=== PATIENT | female | born 1945 | race Caucasian/White ===

== ENCOUNTER 2023-09-13 15:01 | Inpatient (IN) ==
[2023-09-13 19:22] LABS: Mean Corpuscular Hemoglobin 30.6 pg (27-33); Mean Corpuscular Hgb Conc 33.3 g/dL (31-36); Mean Corpuscular Volume 91.7 fL (80-97); Red Cell Distribution Width 15.5 % (12-17)
[2023-09-13 20:16] LABS: C Reactive Protein 26.51 mg/L (<8.01)
[2023-09-13 20:22] LABS: White Blood Count 7.6 10^3/uL (3.8-11.8)
[2023-09-13 20:23] LABS: Hematocrit 37.3 % (35-45); Hemoglobin 12.4 g/dL (11.5-14.3); Red Blood Count 4.07 10^6/uL (3.63-4.92)
[2023-09-13] MEDS: Acetaminophen IV 1 GM/100ML 1,000 MG/100 ML BAG IV ONE (20:41)
[2023-09-13] MEDS: NS 0.9% 1000 ml BAG 1,000 ML IV ONE (20:41)
[2023-09-13 20:43] LABS: Albumin 3.8 g/dL (3.2-5.2); Albumin/Globulin Ratio 1.3 (1-3); Calcium 8.9 mg/dL (8.6-10.3); Creatinine, Serum 0.91 mg/dL (0.51-0.95); Potassium 4.2 mmol/L (3.5-5.0); Total Bilirubin 0.4 mg/dL (0.2-1.0); Total Protein 6.8 g/dL (6.4-8.9)
[2023-09-13 21:18] LABS: ABS Eosinophils 0.1 10^3/uL (0.0-0.5); ABS Lymphocytes 1.3 10^3/uL (1.0-4.8); ABS Monocytes 0.6 10^3/uL (0.0-0.9); ABS Neutrophils 5.6 10^3/uL (1.5-7.6); Lymphocyte % 17.1 %; Mean Platelet Volume 8.2 fL (7.5-11.2); Platelet Count 372 10^3/uL (150-450)
[2023-09-13] MEDS: Cefepime 2 GM in Dextrose 2 GM/50 ML BAG IV ONE (21:22)
[2023-09-13] MEDS: Vancomycin 1,500 MG in NS 0.9% 250 ml 250 ML IVPB ONE (22:07)
[2023-09-13] MEDS ORDERED: Dextrose 50% Syringe 50 ml 25 GM/50 ML SYRINGE IV PUSH PRN (22:46)
[2023-09-13] MEDS ORDERED: Vancomycin per Pharmacy 1 EA NOTE FOLLOW UP SCH (23:00)
[2023-09-14] MEDS: Iodixanol (CONTRAST) 320 MG/ML 100 ML SDV IV SCH (00:46)
[2023-09-14 06:11] LABS: ABS Basophils 0.1 10^3/uL (0.0-0.1); ABS Eosinophils 0.2 10^3/uL (0.0-0.5); ABS Lymphocytes 1.1 10^3/uL (1.0-4.8); ABS Monocytes 0.9 10^3/uL (0.0-0.9); ABS Neutrophils 7.9 10^3/uL (1.5-7.6); ABS Nucleated RBC 0.01 10^3/ul; Eosinophil % 2.1 %; Hematocrit 32.1 % (35-45); Hemoglobin 10.5 g/dL (11.5-14.3); Mean Corpuscular Hemoglobin 30.1 pg (27-33); Mean Corpuscular Hgb Conc 32.5 g/dL (31-36); Mean Corpuscular Volume 92.4 fL (80-97); Mean Platelet Volume 8.1 fL (7.5-11.2); Platelet Count 326 10^3/uL (150-450); Red Blood Count 3.48 10^6/uL (3.63-4.92); Red Cell Distribution Width 15.2 % (12-17); White Blood Count 10.1 10^3/uL (3.8-11.8)
[2023-09-14 06:49] LABS: Calcium 8.1 mg/dL (8.6-10.3); Creatinine, Serum 0.9 mg/dL (0.51-0.95); Potassium 4.3 mmol/L (3.5-5.0); eGFR CKD-EPI 65.8 (>60)
[2023-09-14] MEDS: Potassium Chlor 20 meq TAB.ER PO SCH (09:23)
[2023-09-14] MEDS: Cefepime 2 GM in Dextrose 2 GM/50 ML BAG IV SCH (09:24)
[2023-09-14] MEDS: Tetan/Diph/Pertus SYR(Tdap) 0.5 ML SYR(BOOSTRIX) use SYR contains LATEX IM ONE (17:06)
[2023-09-14] MEDS: Vancomycin 1,500 MG in NS 0.9% 250 ml 250 ML IVPB SCH (22:57)
[2023-09-15 09:58] LABS: ABS Basophils 0.1 10^3/uL (0.0-0.1); ABS Eosinophils 0.2 10^3/uL (0.0-0.5); ABS Lymphocytes 1.4 10^3/uL (1.0-4.8); ABS Monocytes 0.7 10^3/uL (0.0-0.9); Eosinophil % 1.8 %; Hematocrit 33.7 % (35-45); Hemoglobin 11.1 g/dL (11.5-14.3); Lymphocyte % 16.6 %; Mean Corpuscular Hemoglobin 30.4 pg (27-33); Mean Corpuscular Volume 92.1 fL (80-97); Mean Platelet Volume 8.5 fL (7.5-11.2); Platelet Count 307 10^3/uL (150-450); Red Blood Count 3.66 10^6/uL (3.63-4.92); Red Cell Distribution Width 15.8 % (12-17); White Blood Count 8.3 10^3/uL (3.8-11.8)
[2023-09-15 10:28] LABS: Creatinine, Serum 0.94 mg/dL (0.51-0.95); Magnesium 1.9 mg/dL (1.9-2.7); Potassium 4.2 mmol/L (3.5-5.0); eGFR CKD-EPI 62.5 (>60)
[2023-09-16 06:49] LABS: ABS Eosinophils 0.3 10^3/uL (0.0-0.5); ABS Lymphocytes 1.2 10^3/uL (1.0-4.8); ABS Monocytes 0.7 10^3/uL (0.0-0.9); Hemoglobin 10.1 g/dL (11.5-14.3); Lymphocyte % 16.8 %; Mean Corpuscular Hemoglobin 30.5 pg (27-33); Mean Corpuscular Hgb Conc 33.5 g/dL (31-36); Mean Corpuscular Volume 90.9 fL (80-97); Mean Platelet Volume 8.5 fL (7.5-11.2); Platelet Count 265 10^3/uL (150-450); White Blood Count 7.2 10^3/uL (3.8-11.8)
[2023-09-16 07:07] LABS: Creatinine, Serum 0.88 mg/dL (0.51-0.95); Magnesium 1.9 mg/dL (1.9-2.7); Potassium 4.5 mmol/L (3.5-5.0); eGFR CKD-EPI 67.6 (>60)
[2023-09-16 07:23] LABS: TSH Ultra Thyroid Stim Horm 24.23 mcIU/mL (0.34-5.60)
[2023-09-16] MEDS ORDERED: Vancomycin Trough Check NOTE FOLLOW UP ONE (21:30)
[2023-09-19] MEDS ORDERED: Albuterol HFA INHALER 8 gm MDI INH PRN (12:15)
[2023-09-20 09:56] VITALS: BP 140/65
[2023-09-20] MEDS: Potassium Chloride LIQUID 20 MEQ/15 ML LIQUID PO SCH (10:34)
[2023-09-20 11:02] LABS: Rapid COVID-19 Molecular Undetected (Undetected)
== END 2023-09-20 11:58 | DRG 300 ==
LOC: EDHOLD 15:01 → ED 15:01 → MEDTELE 09-14 20:30 → SUATTDRO 09-15 15:53
PROVIDERS: ADMIT Hospitalist; ATTEND Internal Medicine

== ENCOUNTER 2023-12-28 01:55 | Observation (INO) ==
[2023-12-28 03:03] LABS: ABS Basophils 0.1 10^3/uL (0.0-0.1); ABS Eosinophils 0.1 10^3/uL (0.0-0.5); ABS Lymphocytes 0.9 10^3/uL (1.0-4.8); ABS Monocytes 0.6 10^3/uL (0.0-0.9); ABS Neutrophils 8.1 10^3/uL (1.5-7.6); Eosinophil % 0.5 %; Hematocrit 38.5 % (35-45); Hemoglobin 12.7 g/dL (11.5-14.3); Lymphocyte % 9.6 %; Mean Corpuscular Hemoglobin 28.6 pg (27-33); Mean Corpuscular Hgb Conc 33.1 g/dL (31-36); Mean Corpuscular Volume 86.4 fL (80-97); Mean Platelet Volume 8.6 fL (7.5-11.2); Nucleated Red Blood Cells % 0.1 %/100WBC (0.0-0.8); Platelet Count 282 10^3/uL (150-450); Red Blood Count 4.45 10^6/uL (3.63-4.92); Red Cell Distribution Width 16.6 % (12-17); White Blood Count 9.7 10^3/uL (3.8-11.8)
[2023-12-28 03:23] LABS: Albumin 3.6 g/dL (3.2-5.2); Albumin/Globulin Ratio 1.3 (1-3); Calcium 8.7 mg/dL (8.6-10.3); Creatinine, Serum 1.26 mg/dL (0.51-0.95); Globulin 2.8 g/dL (2-4); Potassium 3.6 mmol/L (3.5-5.0); Total Bilirubin 0.8 mg/dL (0.2-1.0); Total Protein 6.4 g/dL (6.4-8.9)
[2023-12-28 04:43] LABS: High Sensitivity Troponin 1 Hr 8 pg/mL (<15)
[2023-12-28] MEDS: Cefepime 1 GM in Dextrose 1 GM/50 ML BAG IV ONE (04:45)
[2023-12-28] MEDS: Acetaminophen IV 1 GM/100ML 1,000 MG/100 ML BAG IV ONE (04:45)
[2023-12-28] MEDS: Furosemide 40 mg/4 ml IV VIAL IV SLOW PU ONE (04:45)
[2023-12-28 04:48] LABS: C Reactive Protein 57.99 mg/L (<8.01)
[2023-12-28] MEDS ORDERED: Sulfur Hexaflouride MICROSPHR 25 MG VIAL IV PRN (12:46)
[2023-12-28] MEDS: Magnesium Sulfate 2 gm BAG 2 GM/50 ML BAG IVPB ONE (13:05)
[2023-12-28 14:01] LABS: Magnesium 1.8 mg/dL (1.9-2.7)
[2023-12-28 14:08] LABS: Magnesium 1.7 mg/dL (1.9-2.7)
[2023-12-28] MEDS: Potassium Chloride LIQUID 20 MEQ/15 ML LIQUID PO ONE (14:27)
[2023-12-28] MEDS: Iodixanol 320 (CONTRAST) 500 ML MDV IV ONE (14:28)
[2023-12-28] MEDS ORDERED: Dextrose 50% Syringe 50 ml 25 GM/50 ML SYRINGE IV PUSH PRN (14:31)
[2023-12-28] MEDS: Potassium Chlor 20 meq TAB.ER PO ONE (15:58)
[2023-12-28] MEDS ORDERED: Lactated Ringers 1000 ml BAG 1,000 ML IV SCH (16:00)
[2023-12-28 16:06] LABS: TSH Ultra Thyroid Stim Horm 30.14 mcIU/mL (0.34-5.60)
[2023-12-28] MEDS: Cefepime 2 GM in Dextrose 2 GM/50 ML BAG IV SCH (16:14)
[2023-12-28] MEDS: Lactated Ringers 1000 ml BAG 1,000 ML IV SCH (16:15)
[2023-12-29 00:52] LABS: Calcium 6.7 mg/dL (8.6-10.3); Creatinine, Serum 0.78 mg/dL (0.51-0.95); Magnesium 1.8 mg/dL (1.9-2.7); Potassium 3.3 mmol/L (3.5-5.0); eGFR CKD-EPI 78.2 (>60)
[2023-12-29] MEDS: Magnesium Sulfate 2 gm BAG 2 GM/50 ML BAG IVPB ONE (03:17)
[2023-12-29] MEDS: Potassium Chloride LIQUID 20 MEQ/15 ML LIQUID PO ONE (03:25)
[2023-12-29 09:37] LABS: ABS Eosinophils 0.1 10^3/uL (0.0-0.5); ABS Lymphocytes 1.1 10^3/uL (1.0-4.8); ABS Monocytes 0.7 10^3/uL (0.0-0.9); ABS Neutrophils 6.9 10^3/uL (1.5-7.6); ABS Nucleated RBC 0.02 10^3/ul; Eosinophil % 1.1 %; Hematocrit 36.7 % (35-45); Lymphocyte % 12.5 %; Mean Corpuscular Hemoglobin 28.4 pg (27-33); Mean Corpuscular Hgb Conc 32.8 g/dL (31-36); Mean Corpuscular Volume 86.7 fL (80-97); Mean Platelet Volume 8.7 fL (7.5-11.2); Nucleated Red Blood Cells % 0.3 %/100WBC (0.0-0.8); Platelet Count 292 10^3/uL (150-450); Red Blood Count 4.24 10^6/uL (3.63-4.92); Red Cell Distribution Width 17.1 % (12-17); White Blood Count 8.8 10^3/uL (3.8-11.8)
[2023-12-29] MEDS: Aspirin EC 81 mg TAB.EC (enteric coated) PO SCH (09:54)
[2023-12-29] MEDS: Nystatin TOP POWDER 15 GM BTL TOPICAL SCH (09:55)
[2023-12-29 10:17] LABS: Calcium 8.3 mg/dL (8.6-10.3); Creatinine, Serum 0.95 mg/dL (0.51-0.95); Magnesium 2.7 mg/dL (1.9-2.7); eGFR CKD-EPI 61.7 (>60)
[2023-12-29] MEDS: ceFAZolin 1 GM ADVAN 1 GM in NS 0.9% 50 ML 50 ML IVPB SCH (14:11)
[2023-12-29 17:25] LABS: Urine Osmo 936 mOsm/kg (150-1150)
[2023-12-30 07:32] LABS: ABS Basophils 0.1 10^3/uL (0.0-0.1); ABS Eosinophils 0.1 10^3/uL (0.0-0.5); ABS Lymphocytes 1.1 10^3/uL (1.0-4.8); ABS Monocytes 0.9 10^3/uL (0.0-0.9); ABS Neutrophils 4.8 10^3/uL (1.5-7.6); Eosinophil % 1.3 %; Hematocrit 30.7 % (35-45); Hemoglobin 10.4 g/dL (11.5-14.3); Lymphocyte % 16.3 %; Mean Corpuscular Hemoglobin 28.9 pg (27-33); Mean Corpuscular Hgb Conc 33.7 g/dL (31-36); Mean Corpuscular Volume 85.9 fL (80-97); Mean Platelet Volume 8.2 fL (7.5-11.2); Nucleated Red Blood Cells % 0.1 %/100WBC (0.0-0.8); Platelet Count 241 10^3/uL (150-450); Red Blood Count 3.58 10^6/uL (3.63-4.92); Red Cell Distribution Width 16.7 % (12-17)
[2023-12-30 09:19] LABS: Calcium 7.6 mg/dL (8.6-10.3); Creatinine, Serum 0.86 mg/dL (0.51-0.95); Magnesium 2.2 mg/dL (1.9-2.7); Phosphorus 2.8 mg/dL (2.5-5.0); Potassium 4.1 mmol/L (3.5-5.0); eGFR CKD-EPI 69.5 (>60)
[2023-12-31 09:32] VITALS: BP 102/53
== END 2023-12-31 12:15 ==
LOC: ED 01:55 → EDHOLD 01:55 → SUATTDRO 12:05 → MEDTELE 16:15
PROVIDERS: ADMIT Student in an Organized Health Care Education/Training Program; ATTEND Student in an Organized Health Care Education/Training Program